=== PATIENT | male | born 1990 | race Caucasian/White ===

== ENCOUNTER 2016-11-27 12:38 | Inpatient (IN) | payer SELFPAY ==
[2016-11-27] MEDS ORDERED: Sodium Chloride 0.9% 1,000 ML IV ONE ×2 (13:30→15:00)
[2016-11-27 14:06] LABS: EOS # 0.2 K/uL (0.0-0.7); EOS % 2.8 % (0.0-4.0); MEAN PLATELET VOLUME 9.7 fL (7.2-11.7)
[2016-11-27 14:09] LABS: BASO % 0.4 % (0.0-2.0); HEMOGLOBIN 17.3 g/dL (12.0-18.0); LYMPH # 1.9 K/uL (1.0-4.3); LYMPH % 23.2 % (20.0-40.0); MEAN CORPUSCULAR HEMOGLOBIN 30.2 pg (27.0-31.0); MEAN CORPUSCULAR HGB CONC 34.3 g/dL (33.0-37.0); MONO # 4.6 K/uL (0.0-0.8); MONO % 55.7 % (0.0-10.0); NEUT # 1.5 K/uL (1.8-7.0); NEUT % 17.9 % (50.0-75.0); NRBC % 0.3 % (0.0-2.0); RBC 5.72 Mil/uL (4.40-5.90); RED CELL DISTRIBUTION WIDTH 13.4 % (11.5-14.5); WHITE BLOOD COUNT 8.2 K/uL (4.8-10.8)
[2016-11-27 14:10] LABS: VENOUS BLOOD GAS BASE EXCESS 3.8 mmol/L (0.0-2.0); VENOUS BLOOD GAS PCO2 56 mmHg (40-60); VENOUS BLOOD GAS PO2 19 mm/Hg (30-55); VENOUS BLOOD PH 7.35 (7.32-7.43)
[2016-11-27 14:13] LABS: INR 1.6
[2016-11-27 14:15] LABS: SQUAMOUS EPITHIAL < 1 /hpf (0-5); URINE BILIRUBIN 2+ (NEGATIVE); URINE BLOOD NEGATIVE (NEGATIVE); URINE CLARITY Clear (Clear); URINE COLOR Amber (YELLOW); URINE GLUCOSE (UA) NORMAL (Normal); URINE LEUKOCYTE ESTERASE TRACE Leu/uL (Negative); URINE NITRATE NEGATIVE (NEGATIVE); URINE PROTEIN 2+ mg/dL (NEGATIVE)
[2016-11-27 14:16] LABS: ALBUMIN 3.8 g/dL (3.5-5.0)
[2016-11-27 14:18] LABS: GFR AFRICAN-AMERICAN > 60; GFR NON-AFRICAN AMERICAN > 60
[2016-11-27 14:19] LABS: BILIRUBIN,DIRECT 5.6 mg/dL (0.0-0.4); BLOOD UREA NITROGEN 7 mg/dL (9-20); CALCIUM 8.5 mg/dl (8.6-10.4)
[2016-11-27 14:20] LABS: GAMMA GLUTAMYL TRANSPEPTIDASE 196 U/L (8-78); LIPASE 32 U/L (23-300)
--- NOTE | 2016-11-27 14:25 | RAD ---
HISTORY: Fever COMPARISON: None available. TECHNIQUE: Chest PA and lateral FINDINGS: LUNGS: No focal consolidation. Please note that chest x-ray has limited sensitivity for the detection of pulmonary masses. PLEURA: No significant pleural effusion identified. No definite pneumothorax . CARDIOVASCULAR: The cardiomediastinal silhouette appears within normal limits of size. OSSEOUS STRUCTURES: No acute osseous abnormality identified. VISUALIZED UPPER ABDOMEN: Unremarkable. OTHER FINDINGS: None. IMPRESSION: No focal consolidation, significant pleural effusion, or definite pneumothorax identified.
[2016-11-27 14:35] LABS: PLATELET COUNT 114 K/uL (130-400)
--- NOTE | 2016-11-27 14:35 | C.PDOC ---
Time Seen by Provider: 11/27/16 13:11 Chief Complaint (Nursing): Fever History Per: Patient Onset/Duration Of Symptoms: Days (5) Current Symptoms Are (Timing): Still Present Associated Symptoms: Fever (subjective), Nausea, Vomiting Severity: Moderate Recent travel outside of the [place]: Yes (Just returned from [place]) Additional History Per: Prior Records Past Medical History Reviewed: Historical Data, Nursing Documentation, Vital Signs Vital Signs: Last Vital Signs Temp 98.2 F 11/27/16 12:55 Pulse 66 11/27/16 14:19 Resp 14 11/27/16 14:19 BP 116/76 11/27/16 14:20 Pulse Ox 99 11/27/16 14:35 - Medical History PMH: Kidney Stones Surgical History: No Surg Hx Family History: States: Unknown Family Hx - Social History Hx Tobacco Use: Yes Hx Alcohol Use: Yes Hx Substance Use: No - Immunization History Hx Tetanus Toxoid Vaccination: No Hx Influenza Vaccination: No Hx Pneumococcal Vaccination: No Review Of Systems Except As Marked, All Systems Reviewed And Found Negative. Constitutional: Positive for: Fever, Malaise Cardiovascular: Negative for: Chest Pain Respiratory: Positive for: Cough (mild). Negative for: Shortness of Breath, Hemoptysis Gastrointestinal: Positive for: Nausea, Vomiting, Other (Pale stools). Negative for: Abdominal Pain Genitourinary: Negative for: Dysuria Musculoskeletal: Negative for: Neck Pain Skin: Positive for: Jaundice. Negative for: Rash Neurological: Negative for: Weakness, Numbness, Seizures, Altered Mental Status , Headache Physical Exam - Physical Exam Appears: No Acute Distress Skin: Warm, Dry, Jaundice Head: Atraumatic, Normacephalic Eye(s): bilateral: PERRL, EOMI, Scleral Icterus Neck: Normal ROM, Supple Cardiovascular: Rhythm Regular Respiratory: Normal Breath Sounds, No Accessory Muscle Use Gastrointestinal/Abdominal: Soft, No Tenderness, No Distention Back: No CVA Tenderness Extremity: Normal ROM, No Pedal Edema, No Calf Tenderness Neurological/Psych: Oriented x3, Normal Speech, Normal Cognition, Normal Motor, Normal Sensation ED Course And Treatment - Laboratory Results Result Diagrams: 11/27/16 13:58 11/27/16 13:58 Lab Interpretation: Abnormal Interpretation Of Abnormal: Liver failure. Hepatitis A reactive. O2 Sat by Pulse Oximetry: 99 Pulse Ox Interpretation: Normal - Radiology CXR: Viewed By Me, Read By Radiologist CXR Interpretation: Yes: No Acute Disease Progress - Interventions Interventions:: Observation, Intravenous fluid - Data Reviewed Data Reviewed: Lab, Diagnostic imaging, Old records - Patient Status Patient status: Partially improved - Continuity of Care Discussed patient case with:: Patient, Family-HIPPA compliant, ED Nurse, On- call PMD-pt unassigned - Patient Plan Patient Plan: Admission Disposition Discussed With DrNatasha: Enmanuel Pappas Comment: He accepted pt on hospitalist service. 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
[2016-11-27 14:48] LABS: PROTHROMBIN TIME 18.7 SECONDS (9.7-12.2)
[2016-11-27 14:53] LABS: HEPATITIS B SURFACE AG NEGATIVE (NEGATIVE)
[2016-11-27 14:59] LABS: HEPATITIS B CORE AB NEGATIVE (NEGATIVE)
[2016-11-27] MEDS ORDERED: Sodium Chloride 0.9% 1,000 ML ONE ×2 (15:02→17:01)
[2016-11-27 15:11] LABS: HEPATITIS C ANTIBODY NEGATIVE (NEGATIVE)
[2016-11-27 15:18] LABS: ALT/SGPT 6062 U/L (21-72); AST/SGOT 3288 U/L (17-59)
[2016-11-27 15:35] LABS: BANDS 3 % (0-2); EOSINOPHIL 3 % (0-4); LARGE PLATELETS PRESENT; LYMPHOCYTE 18 % (20-40); MONOCYTE 15 % (0-10); NEUTROPHIL 16 % (50-75); PLATELET ESTIMATE SLIGHTLY DECREASED (NORMAL); REACTIVE LYMPHOCYTES 45 % (0-0); TOTAL CELLS COUNTED 100
[2016-11-27 15:57] LABS: HEPATITIS A IGM REACTIVE (NEGATIVE)
--- NOTE | 2016-11-27 16:33 | CP.PCM.HP ---
<Domitila Francisco - Last Filed: 11/27/16 18:35> History of Present Illness - History of Present Illness History of Present Illness: CC: fever, n/v/d, jaundice HPI: 26M with PMHx of Malaria x 2 (P. Vivax) presented to the ED with fever, n/v /d, and jaundice. Patient reports he travelled to [facility] 09/2016-11/10/2016 with no malarial prophylaxis. He started to experience fevers with Tmax of 102F, with nausea, vomiting, and diarrhea. Patient went to an urgent care center on Thursday and was prescribed a Zpack and tylenol. Patient took both medications x2 days and stopped due to no improvement. He started to have jose manuel formed stools and noticed he had yellowing of his eyes. This is what prompted the patient to come to the ED. Admitted to fever, n/v/d/, jaundice, and generalized weakness and fatigue. Denied any bleeding, any altered mental status, chills, headache, chest pain, abdominal pain, or urinary symptoms. PMHx: Malaria x 2 (P. Vivax) PSHx: Denied Meds: Denied All: Denied SHx: Drinks beer and mixed hard liquior every 2 days for the past 2-3 years, smokes <10 cigarettes per day x 5years, and smokes marijuana and has tried meth FHx: Denied PMD: Denied Present on Admission - Present on Admission Any Indicators Present on Admission: No Review of Systems - Constitutional Constitutional: Fatigue, Fever, Weakness. absent: Chills, Excessive Sweating, Headache - EENT Eyes: absent: Change in Vision Ears: absent: Decreased Hearing, Tinnitus Nose/Mouth/Throat: absent: Dysphagia, Odynophagia - Cardiovascular Cardiovascular: absent: Chest Pain, Chest Pain at Rest - Respiratory Respiratory: absent: Cough, Dyspnea - Gastrointestinal Gastrointestinal: Change in Stool Character (jose manuel colored stools ), Diarrhea, Nausea, Vomiting. absent: Abdominal Pain, Bloating, Coffee Ground Emesis, Dysphagia, Hematemesis, Hematochezia - Genitourinary Genitourinary: absent: Dysuria, Hematuria - Musculoskeletal Musculoskeletal: Muscle Weakness, Myalgias. absent: Back Pain - Integumentary Integumentary: Jaundice - Neurological Neurological: absent: Abnormal Gait, Confusion, Disequilibrium, Dizziness, Numbness, Headaches - Hematologic/Lymphatic Hematologic: absent: Easy Bleeding, Easy Bruising Past Patient History - Infectious Disease Hx of Infectious Diseases: None - Past Social History Smoking Status: Light Smoker < 10 Cigarettes Daily - RENAL Hx Kidney Stones: Yes - PSYCHIATRIC Hx Substance Use: No - ANESTHESIA Hx Anesthesia: Yes Hx Anesthesia Reactions: No Meds Allergies/Adverse Reactions: Allergies Allergy/AdvReac Type Severity Reaction Status Date / Time No Known Allergies Allergy Verified 11/27/16 12:55 Physical Exam - Constitutional Appears: No Acute Distress - Head Exam Head Exam: NORMAL INSPECTION, NORMOCEPHALIC - Eye Exam Eye Exam: EOMI, PERRL, Scleral icterus Pupil Exam: NORMAL ACCOMODATION - ENT Exam ENT Exam: Mucous Membranes Dry Additional comments: sublingual Jaundice - Neck Exam Neck exam: Positive for: Normal Inspection - Respiratory Exam Respiratory Exam: Clear to Auscultation Bilateral, NORMAL BREATHING PATTERN. absent: Decreased Breath Sounds, Wheezes - Cardiovascular Exam Cardiovascular Exam: REGULAR RHYTHM, RRR, +S1, +S2 - GI/Abdominal Exam GI & Abdominal Exam: Normal Bowel Sounds, Soft. absent: Distended, Tenderness - Rectal Exam Rectal Exam: Deferred - Extremities Exam Extremities exam: Positive for: normal inspection, pedal pulses present. Negative for: pedal edema, tenderness - Back Exam Back exam: NORMAL INSPECTION - Neurological Exam Neurological exam: Alert, CN II-XII Intact, Oriented x3 - Psychiatric Exam Psychiatric exam: Normal Affect, Normal Mood - Skin Skin Exam: Dry, Intact, Normal Color, Warm Results - Vital Signs Recent Vital Signs: Last Vital Signs Temp 98.2 F 11/27/16 12:55 Pulse 66 11/27/16 14:19 Resp 14 11/27/16 14:19 BP 116/76 11/27/16 14:20 Pulse Ox 99 11/27/16 16:32 - Labs Result Diagrams: 11/27/16 13:58 11/27/16 13:58 Labs: Laboratory Results - last 24 hr 11/27/16 11/27/16 11/27/16 13:58 13:58 13:58 WBC 8.2 RBC 5.72 Hgb 17.3 Hct 50.3 MCV 88.0 MCH 30.2 MCHC 34.3 RDW 13.4 Plt Count 114 L MPV 9.7 Neut % (Auto) 17.9 L Lymph % (Auto) 23.2 [place] % (Auto) 55.7 H Eos % (Auto) 2.8 Baso % (Auto) 0.4 Neut # 1.5 L Lymph # 1.9 [place] # 4.6 H Eos # 0.2 Baso # 0.0 Neutrophils % (Manual) 16 L Band Neutrophils % 3 H Lymphocytes % (Manual) 18 L Reactive Lymphs % 45 H Monocytes % (Manual) 15 H Eosinophils % (Manual) 3 Platelet Estimate Slightly decreased L Large Platelets Present RBC Morphology Normal PT 18.7 H INR 1.6 APTT 38 H pO2 VBG pH VBG pCO2 VBG HCO3 VBG Total CO2 VBG O2 Sat (Calc) VBG Base Excess VBG Potassium Glucose Lactate Crit Value Called To Crit Value Called By Crit Value Read Back Blood Gas Notified Time Sodium Potassium Chloride Carbon Dioxide Anion Gap BUN Creatinine Est GFR ( Amer) Est GFR (Non-Af Amer) Random Glucose Calcium Total Bilirubin Direct Bilirubin GGT AST ALT Alkaline Phosphatase Total Protein Albumin Globulin Albumin/Globulin Ratio Lipase Venous Blood Potassium Urine Color [place] Urine Clarity Clear Urine pH 6.0 Ur Specific [place] 1.025 Urine Protein 2+ H Urine Glucose (UA) Normal Urine Ketones Trace Urine Blood Negative Urine Nitrate Negative Urine Bilirubin 2+ H Urine Urobilinogen 4.0 Ur Leukocyte Esterase Trace Urine WBC (Auto) 7 H Urine RBC (Auto) < 1 Ur Squamous Epith Cells < 1 Hepatitis A IgM Ab Hep Bs Antigen Hep B Core IgM Ab Hepatitis C Antibody 11/27/16 11/27/16 11/27/16 13:58 13:58 14:00 WBC RBC Hgb Hct MCV MCH MCHC RDW Plt Count MPV Neut % (Auto) Lymph % (Auto) [place] % (Auto) Eos % (Auto) Baso % (Auto) Neut # Lymph # [place] # Eos # Baso # Neutrophils % (Manual) Band Neutrophils % Lymphocytes % (Manual) Reactive Lymphs % Monocytes % (Manual) Eosinophils % (Manual) Platelet Estimate Large Platelets RBC Morphology PT INR APTT pO2 19 L VBG pH 7.35 VBG pCO2 56 VBG HCO3 26.0 VBG Total CO2 32.6 H VBG O2 Sat (Calc) 40.4 VBG Base Excess 3.8 H VBG Potassium 3.6 Glucose 90 Lactate 2.2 H Crit Value Called To Dr lizarraga Crit Value Called By Cheko frankel Crit Value Read Back Y Blood Gas Notified Time 1405 Sodium 133 132.0 Potassium 3.4 L Chloride 90 L 95.0 L Carbon Dioxide 30 Anion Gap 17 BUN 7 L Creatinine 0.8 Est GFR ( Amer) > 60 Est GFR (Non-Af Amer) > 60 Random Glucose 86 Calcium 8.5 L Total Bilirubin 6.7 H Direct Bilirubin 5.6 H GGT 196 H AST 3288 H ALT 6062 H Alkaline Phosphatase 115 Total Protein 7.5 Albumin 3.8 Globulin 3.7 Albumin/Globulin Ratio 1.0 Lipase 32 Venous Blood Potassium 3.6 Urine Color Urine Clarity Urine pH Ur Specific [place] Urine Protein Urine Glucose (UA) Urine Ketones Urine Blood Urine Nitrate Urine Bilirubin Urine Urobilinogen Ur Leukocyte Esterase Urine WBC (Auto) Urine RBC (Auto) Ur Squamous Epith Cells Hepatitis A IgM Ab Reactive H Hep Bs Antigen Negative Hep B Core IgM Ab Negative Hepatitis C Antibody Negative Assessment & Plan - Assessment and Plan (Free Text) Plan: Hepatitis A * INR 1.6, No AMS * MELD 19, Mortality 6%, Maddrey's Score: 46.7 * GI Consulted- Dr. Retana - help appreciated- Patient is to be evaluated by GI, possible transfer to [facility]. [phone] * ID Consulted- Dr. Mendiola - help appreciated * INR 1.6, T. Bili- 6.7, D. bili 5.6, GGT 196, AST/ALT: 3288/ 6062, Hepatitis A IgM Ab Reactive * Negative acetaminophen, alcohol, ammonia, hepatitis panel, HIV * Abdominal US -Echogenic liver, splenomegaly, contracted gallbladder Diarrhea * F/U stool studies, stool occult, c.diff, ova and parasite, e. histolytica, malaria, giardia Hx of Malaria * P. Vivax x 2 * F/U stool studies, ova and parasites studies Hx of Alcohol Use * Serum alcohol <10 * Alcohol Cessation Counselled Hx of Tobacco Use * Smoking Cessation Counselled Prophylactic Measure * GI PPX: Protonix 40mg IVP daily * DVT PPX: C/I due to thrombocytopenia * Regular Diet Disposition: Patient is being evaluated by GI, possible transfer to [facility]. DW Maryam Contreras DO, PGY-1 <Karely Dwyer V - Last Filed: 11/27/16 22:57> Results - Vital Signs Recent Vital Signs: Last Vital Signs Temp 98.5 F 11/27/16 21:46 Pulse 68 11/27/16 21:46 Resp 18 11/27/16 21:46 BP 120/69 11/27/16 21:46 Pulse Ox 100 11/27/16 21:46 - Labs Result Diagrams: 11/27/16 13:58 11/27/16 13:58 Labs: Laboratory Results - last 24 hr 11/27/16 11/27/16 11/27/16 18:02 18:02 18:02 Phosphorus 2.4 L Magnesium 1.6 Ammonia < 9 L Urine Opiates Screen Urine Methadone Screen Acetaminophen < 10.0 L Ur Barbiturates Screen Ur Phencyclidine Scrn Ur Amphetamines Screen U Benzodiazepines Scrn U Oth Cocaine Metabols U Cannabinoids Screen Alcohol, Quantitative < 10 HIV 1&2 Antibody Screen Blood Parasites Smear 11/27/16 11/27/16 11/27/16 18:02 18:03 18:04 Phosphorus Magnesium Ammonia Urine Opiates Screen Negative Urine Methadone Screen Negative Acetaminophen Ur Barbiturates Screen Negative Ur Phencyclidine Scrn Negative Ur Amphetamines Screen Negative U Benzodiazepines Scrn Negative U Oth Cocaine Metabols Negative U Cannabinoids Screen Positive Alcohol, Quantitative HIV 1&2 Antibody Screen Negative Blood Parasites Smear Negative Attending/Attestation - Attestation I have personally seen and examined this patient.: Yes I have fully participated in the care of the patient.: Yes I have reviewed all pertinent clinical information: Yes Notes (Text): Patient seen, evaluated, and case discussed with day-time resident in the ED on 11/27/16 in [facility] 10 approximately 5:00PM Patient seen at bedside with two friends. Patient permits us to speak about his medical information in front of his friends. patient reports Thursday he had a temperature of 102F, he reports he took 3 tabs of Paracemtol 650mg PO during Thu -Thursday. Patient reports he went to an urgent care on thursday, and he was given Z -pack and took 2 tabs. Patient reports he noted he was have jose manuel colored stools and dark colored stools Thursday into today. patient reports he notice yellowing of his eyes today. Per his friends who live with him, noted patient's eyes yellowing today. Patient reports he was in [place] in the past September to [facility], he did not take malaria prophylaxis, and drinks water that is filtered (not bottled ). Patient denies prior history of liver problems/liver infections. Patient also reports 1-2 (12 ounce) beers for the past 1.5 years day. He reports if he does do hard liquor he does mix the drinks. Patient denies prior illicit drugs except for meth while he was in [place]. Patient reports he has a prior hx of malaria (P. vivax) about 9 years ago, wherein he relapsed at the first occurrence and was treated afterwards. Patient is unaware of current vaccination status, but reports he came to the country while on student visa. Patient reports he sexually active, he sometimes uses protection, denies being tested for STDs/HIV. Patient reports only relative in the [place] is his Uncle in [place]. Medical hx: kidney stones Patient is awake, alert, oriented X3, no acute distress, he is not confused, speaks Urdu conversantly. Head: NCAT; scleral icterus; eomi, no nystagmus Ears: TMI b/l Throat: clear Mouth: no bleeding, mucus moist intact; sublingual jaundice Lungs: CTA b/l no W/R/R Abdomen: soft, nontender, +BS , no rebound, no guarding, negative Pineda's sign , i did not appreciate hepatomegaly Extremities: no cyanosis, no clubbing, no edema b/l LE Neuro: CN 2-12 grossly intact (CN 8 not test secondary lack of tuning forks), + gag reflex, +corneal reflex, negative straight leg test b/l, negative Babinski' s Strength: 5/5 UE and 5/5 LE; no asterixis Skin: does not appear jaundice; palms no juandice observed Patient does not smell like alcohol. Spoke with ED nurse-->order blood alcohol, tylenol, HIV, Abdominal US, and urine drug screen Resident directly spoke with GI Fellow, Ravi Villareal (Dr. Retana's group->button maker) regarding the case, who spoke with Dr. Johnston (GI), recommended for transfer to [facility] and not for admission-->each spoke separately with ED. I spoke with Dr. Monroe, ED, regarding GI recommendation, affirmed conversations, and I gave contact number for hepatology, which I provided him while in communication with the GI Fellow, Ravi Villareal, who is driving in to see the patient at the time of shift change: 650PM. Assessment/Plan 1) Hepatic Failure * MELD 19, Mortality 6%, Maddrey's Score: 46.7 * GI Consulted- Dr. Retana - help appreciated- Patient is to be evaluated by GI, recommended possible transfer to [facility]. [phone]-->Number provided by the Hepatology Fellow at [facility] provided by GI fellow; further recommendations by GI * ID Consulted- Dr. Mendiola - sarah appreciated * INR 1.6, T. Bili- 6.7, D. bili 5.6, GGT 196, AST/ALT: 3288/ 6062, Hepatitis A IgM Ab Reactive * Negative acetaminophen, alcohol, ammonia, hepatitis panel, HIV * Ordered for Abdominal US -Echogenic liver, splenomegaly, contracted gallbladder * Patient is not confused, no encephalopathic, and no bleeding problems * Patient advised he cannot have medications that are metabolized thru the liver which include anti-emetics: Zofran/Reglan; sedatives: benadryl/benzos 2) Diarrhea * R/o other causes of diarrhea while in consideration for hepatic failure * F/U stool studies, stool occult, c.diff, ova and parasite, e. histolytica, malaria, giardia 3) Hx of Malaria * Prior hx of P. Vivax-->reported 2 episodes about 9 years ago; patient has not have malaria prophylaxis prior to his trip to [facility] * F/U stool studies, ova and parasites studies 4) Hx of Alcohol Use * Serum alcohol <10 * Alcohol Cessation Counselled 5) Hx of Tobacco Use * Smoking Cessation Counselled 6) Prophylactic Measure * GI PPX: Protonix 40mg IVP daily * DVT PPX: C/I due to thrombocytopenia * Regular Diet Disposition: Patient is being evaluated by GI, possible transfer to [facility]. . Case endorsed to night-team.
[2016-11-27] MEDS ORDERED: Potassium Chloride 20 mEq ER Tab PO STA (16:37)
[2016-11-27] MEDS ORDERED: Sodium Chloride 0.9% 1,000 ML IV SCH (16:45)
[2016-11-27] MEDS ORDERED: Potassium Chloride 20 mEq ER Tab PO ONE (17:01)
[2016-11-27 18:22] LABS: MAGNESIUM 1.6 mg/dL (1.6-2.3)
[2016-11-27 18:27] LABS: BARBITURATES, UR NEGATIVE (NEGATIVE)
[2016-11-27 18:28] LABS: BENZODIAZEPINES, UR NEGATIVE (NEGATIVE)
--- NOTE | 2016-11-27 18:30 | CP.PCM.PN ---
Subjective - Date & Time of Evaluation Date of Evaluation: 11/27/16 Time of Evaluation: 05:00 - Subjective Subjective: CC: fever, n/v/d, jaundice HPI: 26M with PMHx of Malaria x 2 (P. Vivax) presented to the ED with fever, n/v /d, and jaundice. Patient reports he travelled to [facility] 09/2016-11/10/2016 with no malarial prophylaxis. He started to experience fevers with Tmax of 102F, with nausea, vomiting, and diarrhea. Patient went to an urgent care center on Thursday and was prescribed a Zpack and tylenol. Patient took both medications x2 days and stopped due to no improvement. He started to have jose manuel formed stools and noticed he had yellowing of his eyes. This is what prompted the patient to come to the ED. Admitted to fever, n/v/d/, jaundice, and generalized weakness and fatigue. Denied any bleeding, any altered mental status, chills, headache, chest pain, abdominal pain, or urinary symptoms. PMHx: Malaria x 2 (P. Vivax) PSHx: Denied Meds: Denied All: Denied SHx: Denied FHx: Denied PMD: Denied Gastroenterology Fellow was called discussed case with GI Attending, arrangments are being made to have patient transferred to [facility]. Objective - Vital Signs/Intake and Output Vital Signs (last 24 hours): Temp Pulse Resp BP Pulse Ox 98.2 F 80 16 130/69 100 11/27/16 12:55 11/27/16 16:55 11/27/16 16:55 11/27/16 16:55 11/27/16 16:55 - Medications Medications: Current Medications Sodium Chloride (Sodium Chloride 0.9%) 1,000 mls @ 100 mls/hr IV .Q10H SONDRA Last Admin: 11/27/16 17:06 Dose: 100 mls/hr Pantoprazole Sodium (Protonix Inj) 40 mg IVP DAILY SONDRA - Labs Labs: PT 18.7 SECONDS (9.7-12.2) H 11/27/16 13:58 INR 1.6 11/27/16 13:58 APTT 38 SECONDS (21-34) H 11/27/16 13:58 - Constitutional Appears: Toxic, No Acute Distress - Head Exam Head Exam: NORMAL INSPECTION, NORMOCEPHALIC - Eye Exam Eye Exam: EOMI, PERRL, Scleral icterus Pupil Exam: NORMAL ACCOMODATION - ENT Exam ENT Exam: Mucous Membranes Dry Additional comments: sublingual Jaundice - Respiratory Exam Respiratory Exam: Clear to Ausculation Bilateral, NORMAL BREATHING PATTERN. absent: Decreased Breath Sounds, Rhonchi, Wheezes - Cardiovascular Exam Cardiovascular Exam: REGULAR RHYTHM, RRR, +S1, +S2 - GI/Abdominal Exam GI & Abdominal Exam: Soft, Normal Bowel Sounds. absent: Distended, Guarding, Tenderness, Organomegaly - Rectal Exam Rectal Exam: Deferred - Extremities Exam Extremities Exam: Normal Inspection. absent: Pedal Edema, Tenderness - Back Exam Back Exam: NORMAL INSPECTION. absent: CVA tenderness (L), CVA tenderness (R) - Neurological Exam Neurological Exam: Alert, Awake, CN II-XII Intact, Oriented x3 - Psychiatric Exam Psychiatric exam: Normal Affect, Normal Mood - Skin Skin Exam: Dry, Intact, Normal Color, Warm
[2016-11-27 18:31] LABS: PHENCYCLIDINE, UR NEGATIVE (NEGATIVE)
[2016-11-27 18:32] LABS: OPIATES, UR NEGATIVE (NEGATIVE)
--- NOTE | 2016-11-27 18:45 | US ---
HISTORY: r/o biliary stones; elevated bilirubin COMPARISON: None available. TECHNIQUE: Sonographic evaluation of the abdomen. FINDINGS: LIVER: Measures 17.1 cm in sagittal dimension. Echogenic liver may be seen in setting of hepatic parenchymal disease or fatty infiltration. No focal hepatic mass identified. The main portal vein appears patent with normal directional flow. No intrahepatic bile duct dilatation. GALLBLADDER: Contracted gallbladder markedly limits evaluation. No gallstones. No gallbladder wall thickening. Negative sonographic Pineda's sign as assessed by the weather reporter. COMMON BILE DUCT: Measures 4 mm. PANCREAS: Not well visualized. RIGHT KIDNEY: Measures 12.2 x 4.2 x 4.9cm. No obstructing calculus or hydronephrosis identified. LEFT KIDNEY: Measures 11.8 x 4.8 x 4.4 cm. No obstructing calculus or hydronephrosis identified. SPLEEN: Measures approximately 15.3 cm. AORTA: Limited views appear unremarkable. IVC: Limited views appear unremarkable. OTHER FINDINGS: None. IMPRESSION: Echogenic liver may be seen in setting of hepatic parenchymal disease or fatty infiltration. Splenomegaly. Contracted gallbladder state limits evaluation. Otherwise unremarkable appearance.
--- NOTE | 2016-11-27 19:16 | CP.PCM.CON ---
History of Present Illness - History of Present Illness History of Present Illness: PGY5 GI Fellow Consult Note Patient is a 26yo male with PMHx significant for malaria treated successfully in [place] previously who presents to the ER with complaint of diffuse myalgias, fever and new onset jaundice. He states that he returned from a one month trip to [facility] in mid-October. 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 He took tylenol for several days without much improvement in symptoms and decided to follow up with a primary care physician who diagnosed him with URI and gave him an Rx for azithromycin pack and tylenol. Following two days of this therapy, he developed jose manuel colored stool, dark urine and noted jaundice. With concern that he was having an adverse reaction to the medication and still feeling unwell, he came to the ED for evaluation. The patient currently admits to persistent diffuse myalgias, nausea with vomiting and intermittent fevers. He notes one episode of hematemesis following multiple bouts of vomiting and denies any hematochezia, melena or hemoptysis. There is no new bruising noted. He and his friend (at bedside) deny any mental status changes. He has no sick contacts that he is aware of. The patient drinks 1-2 pints of beer daily for many years and will occasionally indulge in hard liquor on weekends. Last drink was one week [employer] BAR [employer]. PMHx: See HPI PSHx: Discussed with patient and denies any significant surgical history FHx: Discussed with patient and denies any significant family history Social: Daily EtOH (1-2 pints daily, occasionally hard liquor as well), 2-3 cig/ day (prior 1pk/day smoker), marijuana use and smoked meth once in [place] Endo: 12 system ROS discussed and negative except where stated above Past Patient History - Infectious Disease Hx of Infectious Diseases: None - Past Social History Smoking Status: Light Smoker < 10 Cigarettes Daily - RENAL Hx Kidney Stones: Yes - PSYCHIATRIC Hx Substance Use: No - ANESTHESIA Hx Anesthesia: Yes Hx Anesthesia Reactions: No Meds Allergies/Adverse Reactions: Allergies Allergy/AdvReac Type Severity Reaction Status Date / Time No Known Allergies Allergy Verified 11/27/16 12:55 - Medications Medications: Current Medications Sodium Chloride (Sodium Chloride 0.9%) 1,000 mls @ 100 mls/hr IV .Q10H SONDRA Last Admin: 11/27/16 17:06 Dose: 100 mls/hr Pantoprazole Sodium (Protonix Inj) 40 mg IVP DAILY [facility] Physical Exam - Constitutional Appears: No Acute Distress - Eye Exam Eye Exam: EOMI, PERRL, Scleral icterus - ENT Exam ENT Exam: Mucous Membranes Dry - Respiratory Exam Respiratory Exam: Clear to Auscultation Bilateral. absent: Rales, Rhonchi, Wheezes - Cardiovascular Exam Cardiovascular Exam: RRR, +S1, +S2 - GI/Abdominal Exam GI & Abdominal Exam: Normal Bowel Sounds, Soft. absent: Distended, Firm, Guarding, Organomegaly, Rigid, Tenderness - Extremities Exam Extremities exam: Positive for: normal inspection. Negative for: pedal edema - Neurological Exam Neurological exam: Alert, Oriented x3 - Psychiatric Exam Psychiatric exam: Normal Affect, Normal Mood - Skin Skin Exam: Dry, Warm Additional comments: jaundice Results - Vital Signs Recent Vital Signs: Last Vital Signs Temp 98.2 F 11/27/16 12:55 Pulse 80 11/27/16 16:55 Resp 16 11/27/16 16:55 BP 130/69 11/27/16 16:55 Pulse Ox 100 11/27/16 16:55 - Labs Result Diagrams: 11/27/16 13:58 11/27/16 13:58 Labs: Laboratory Results - last 24 hr 11/27/16 11/27/16 11/27/16 18:02 18:02 18:02 Phosphorus 2.4 L Magnesium 1.6 Ammonia < 9 L Urine Opiates Screen Urine Methadone Screen Acetaminophen < 10.0 L Ur Barbiturates Screen Ur Phencyclidine Scrn Ur Amphetamines Screen U Benzodiazepines Scrn U Oth Cocaine Metabols U Cannabinoids Screen Alcohol, Quantitative < 10 HIV 1&2 Antibody Screen 11/27/16 11/27/16 18:02 18:04 Phosphorus Magnesium Ammonia Urine Opiates Screen Negative Urine Methadone Screen Negative Acetaminophen Ur Barbiturates Screen Negative Ur Phencyclidine Scrn Negative Ur Amphetamines Screen Negative U Benzodiazepines Scrn Negative U Oth Cocaine Metabols Negative U Cannabinoids Screen Positive Alcohol, Quantitative HIV 1&2 Antibody Screen Negative Assessment & Plan - Assessment and Plan (Free Text) Assessment: Patient is a 26yo male with PMHx significant for malaria treated successfully in [place] previously who presents to the ER with complaint of diffuse myalgias, fever and new onset jaundice. He states that he returned from a one month trip to [facility] in mid-October. -Acute Hepatitis A infection; R/O underlying CLD or acute alcoholic hepatitis -Abnormal LFTs in the setting of above -Mild thrombocytopenia -Coagulopathy 2/2 above -Alcohol abuse -Marijuana use -Tobacco use -Distant h/o malaria Plan: -Acute Hepatitis A noted on serologies -No evidence of acute bleeding or mental status changes at this time, closely monitor clinical condition -Suspect hemoconcentration given CBC findings; IVF as ordered -Check U/S abdomen -Acetaminophen level unremarkable; EtOH level unremarkable -UDS noted positive for marijuana -The patient would benefit from evaluation at a liver transplant center and our team would recommend transfer for evaluation as soon as possible once accepted -I have discussed this patient's case with the hepatology fellow financial professional (Dr Hernández) at [facility] who has accepted the patient for transfer -Continue supportive care -Monitor CBC, CMP, INR *MELD-Na: 23 - Date & Time Date: 11/27/16 Time: 07:15
[2016-11-27 19:22] LABS: INTRACELLULAR PARASITE NEGATIVE (NEGATIVE)
[2016-11-28 01:00] VITALS: BP 113/66; PULSE 66; RESP 20; TEMP 98; O2SAT 97
--- NOTE | 2016-11-28 07:03 | CP.PCM.DIS ---
<Bre Shaw - Last Filed: 11/28/16 06:48> Provider - Provider Date of Admission: 11/27/16 16:32 Attending physician: Enmanuel Pappas MD Consults: GI (Dr. Retana) Time Spent in preparation of Discharge (in minutes): 45 Diagnosis - Discharge Diagnosis (1) Hepatitis A infection Status: Acute (2) Diarrhea Status: Acute (3) History of malaria Status: Acute (4) History of alcohol use Status: Chronic (5) History of tobacco use Status: Chronic Hospital Course - Lab Results Lab Results: Most Recent Lab Values WBC 8.2 K/uL (4.8-10.8) 11/27/16 13:58 RBC 5.72 Mil/uL (4.40-5.90) 11/27/16 13:58 Hgb 17.3 g/dL (12.0-18.0) 11/27/16 13:58 Hct 50.3 % (35.0-51.0) 11/27/16 13:58 MCV 88.0 fL (80.0-94.0) 11/27/16 13:58 MCH 30.2 pg (27.0-31.0) 11/27/16 13:58 MCHC 34.3 g/dL (33.0-37.0) 11/27/16 13:58 RDW 13.4 % (11.5-14.5) 11/27/16 13:58 Plt Count 114 K/uL (130-400) L 11/27/16 13:58 MPV 9.7 fL (7.2-11.7) 11/27/16 13:58 Neut % (Auto) 17.9 % (50.0-75.0) L 11/27/16 13:58 Lymph % (Auto) 23.2 % (20.0-40.0) 11/27/16 13:58 [place] % (Auto) 55.7 % (0.0-10.0) H 11/27/16 13:58 Eos % (Auto) 2.8 % (0.0-4.0) 11/27/16 13:58 Baso % (Auto) 0.4 % (0.0-2.0) 11/27/16 13:58 Neut # 1.5 K/uL (1.8-7.0) L 11/27/16 13:58 Lymph # 1.9 K/uL (1.0-4.3) 11/27/16 13:58 [place] # 4.6 K/uL (0.0-0.8) H 11/27/16 13:58 Eos # 0.2 K/uL (0.0-0.7) 11/27/16 13:58 Baso # 0.0 K/uL (0.0-0.2) 11/27/16 13:58 Neutrophils % (Manual) 16 % (50-75) L 11/27/16 13:58 Band Neutrophils % 3 % (0-2) H 11/27/16 13:58 Lymphocytes % (Manual) 18 % (20-40) L 11/27/16 13:58 Reactive Lymphs % 45 % (0-0) H 11/27/16 13:58 Monocytes % (Manual) 15 % (0-10) H 11/27/16 13:58 Eosinophils % (Manual) 3 % (0-4) 11/27/16 13:58 Platelet Estimate Slightly decreased (NORMAL) L 11/27/16 13:58 Large Platelets Present 11/27/16 13:58 RBC Morphology Normal 11/27/16 13:58 PT 18.7 SECONDS (9.7-12.2) H 11/27/16 13:58 INR 1.6 11/27/16 13:58 APTT 38 SECONDS (21-34) H 11/27/16 13:58 pO2 19 mm/Hg (30-55) L 11/27/16 14:00 VBG pH 7.35 (7.32-7.43) 11/27/16 14:00 VBG pCO2 56 mmHg (40-60) 11/27/16 14:00 VBG HCO3 26.0 mmol/L 11/27/16 14:00 VBG Total CO2 32.6 mmol/L (22-28) H 11/27/16 14:00 VBG O2 Sat (Calc) 40.4 % (40-65) 11/27/16 14:00 VBG Base Excess 3.8 mmol/L (0.0-2.0) H 11/27/16 14:00 VBG Potassium 3.6 mmol/L (3.6-5.2) 11/27/16 14:00 Sodium 132.0 mmol/l (132-148) 11/27/16 14:00 Chloride 95.0 mmol/L (98-107) L 11/27/16 14:00 Glucose 90 mg/dl (75-110) 11/27/16 14:00 Lactate 2.2 mmol/L (0.7-2.1) H 11/27/16 14:00 Crit Value Called To Dr lizarraga 11/27/16 14:00 Crit Value Called By Cheko frankel 11/27/16 14:00 Crit Value Read Back Y 11/27/16 14:00 Blood Gas Notified Time 1405 11/27/16 14:00 Sodium 133 mmol/L (132-148) 11/27/16 13:58 Potassium 3.4 mmol/L (3.6-5.2) L 11/27/16 13:58 Chloride 90 mmol/L (98-107) L 11/27/16 13:58 Carbon Dioxide 30 mmol/L (22-30) 11/27/16 13:58 Anion Gap 17 (10-20) 11/27/16 13:58 BUN 7 mg/dL (9-20) L 11/27/16 13:58 Creatinine 0.8 MG/DL (0.8-1.5) 11/27/16 13:58 Est GFR ( Amer) > 60 11/27/16 13:58 Est GFR (Non-Af Amer) > 60 11/27/16 13:58 Random Glucose 86 mg/dL (75-110) 11/27/16 13:58 Calcium 8.5 mg/dl (8.6-10.4) L 11/27/16 13:58 Phosphorus 2.4 mg/dL (2.5-4.5) L 11/27/16 18:02 Magnesium 1.6 mg/dL (1.6-2.3) 11/27/16 18:02 Total Bilirubin 6.7 mg/dL (0.2-1.3) H 11/27/16 13:58 Direct Bilirubin 5.6 mg/dL (0.0-0.4) H 11/27/16 13:58 GGT 196 U/L (8-78) H 11/27/16 13:58 AST 3288 U/L (17-59) H 11/27/16 13:58 ALT 6062 U/L (21-72) H 11/27/16 13:58 Alkaline Phosphatase 115 U/L (38-126) 11/27/16 13:58 Ammonia < 9 umol/L (9-33) L 11/27/16 18:02 Total Protein 7.5 g/dL (6.3-8.3) 11/27/16 13:58 Albumin 3.8 g/dL (3.5-5.0) 11/27/16 13:58 Globulin 3.7 gm/dL (2.2-3.9) 11/27/16 13:58 Albumin/Globulin Ratio 1.0 (1.0-2.1) 11/27/16 13:58 Lipase 32 U/L (23-300) 11/27/16 13:58 Venous Blood Potassium 3.6 mmol/L (3.6-5.2) 11/27/16 14:00 Urine Color [place] (YELLOW) 11/27/16 13:58 Urine Clarity Clear (Clear) 11/27/16 13:58 Urine pH 6.0 (5.0-8.0) 11/27/16 13:58 Ur Specific [place] 1.025 (1.003-1.030) 11/27/16 13:58 Urine Protein 2+ mg/dL (NEGATIVE) H 11/27/16 13:58 Urine Glucose (UA) Normal mg/dL (Normal) 11/27/16 13:58 Urine Ketones Trace mg/dL (NEGATIVE) 11/27/16 13:58 Urine Blood Negative (NEGATIVE) 11/27/16 13:58 Urine Nitrate Negative (NEGATIVE) 11/27/16 13:58 Urine Bilirubin 2+ (NEGATIVE) H 11/27/16 13:58 Urine Urobilinogen 4.0 mg/dL (0.2-1.0) 11/27/16 13:58 Ur Leukocyte Esterase Trace [place]/uL (Negative) 11/27/16 13:58 Urine WBC (Auto) 7 /hpf (0-5) H 11/27/16 13:58 Urine RBC (Auto) < 1 /hpf (0-3) 11/27/16 13:58 Ur Squamous Epith Cells < 1 /hpf (0-5) 11/27/16 13:58 Urine Opiates Screen Negative (NEGATIVE) 11/27/16 18:04 Urine Methadone Screen Negative (NEGATIVE) 11/27/16 18:04 Acetaminophen < 10.0 ug/mL (10.0-30.0) L 11/27/16 18:02 Ur Barbiturates Screen Negative (NEGATIVE) 11/27/16 18:04 Ur Phencyclidine Scrn Negative (NEGATIVE) 11/27/16 18:04 Ur Amphetamines Screen Negative (NEGATIVE) 11/27/16 18:04 U Benzodiazepines Scrn Negative (NEGATIVE) 11/27/16 18:04 U Oth Cocaine Metabols Negative (NEGATIVE) 11/27/16 18:04 U Cannabinoids Screen Positive (NEGATIVE) 11/27/16 18:04 Alcohol, Quantitative < 10 mg/dl (0-10) 11/27/16 18:02 Hepatitis A IgM Ab Reactive (NEGATIVE) H 11/27/16 13:58 Hep Bs Antigen Negative (NEGATIVE) 11/27/16 13:58 Hep B Core IgM Ab Negative (NEGATIVE) 11/27/16 13:58 Hepatitis C Antibody Negative (NEGATIVE) 11/27/16 13:58 HIV 1&2 Antibody Screen Negative (NEGATIVE) 11/27/16 18:02 Blood Parasites Smear Negative (NEGATIVE) 11/27/16 18:03 - Hospital Course Hospital Course: On admission: 26M with PMHx of Malaria x 2 (P. Vivax) presented to the ED with fever, n/v/d, and jaundice. Patient reports he travelled to [facility] 09/2016-11/10/2016 with no malarial prophylaxis. He started to experience fevers with Tmax of 102F, with nausea, vomiting, and diarrhea. Patient went to an urgent care center on Thursday and was prescribed a Zpack and tylenol. Patient took both medications x2 days and stopped due to no improvement. He started to have jose manuel formed stools and noticed he had yellowing of his eyes. This is what prompted the patient to come to the ED. Admitted to fever, n/v/d/, jaundice, and generalized weakness and fatigue. Denied any bleeding, any altered mental status, chills, headache, chest pain, abdominal pain, or urinary symptoms. Hospital Course: Patient closely monitored and stable. No evidence of acute bleeding or mental status changes noted. Patient found to be Hepatitis A reactive. Infectious Disease ( Dr. Mendiola) was brought on board with recommendations for further workup. Refer to labwork. Abd U/S ordered with findings of an echogenic liver, splenomegaly and contracted gallbladder in brief. Stool studies were ordered for the diarrhea. Ova and parasite studies were also ordered to rule out malaria. UDS and alcohol and acetaminophen level were ordered. Acetaminophen level less than 10. Cannabinoids positive. Recommendations were made for further evaluation at a liver transplant center. [facility] in [place] was contacted. Patient was accepted under the service of Dr. Oneill overnight. Patient counseled extensively on cessation during his short course here. This is a brief summary of events. For a complete course, refer to the medical record. Discharge Exam - Head Exam Head Exam: NORMAL INSPECTION, NORMOCEPHALIC - Eye Exam Eye Exam: EOMI, PERRL, Scleral icterus - ENT Exam ENT Exam: Mucous Membranes Dry - Neck Exam Neck exam: Full Rom - Respiratory Exam Respiratory Exam: NORMAL BREATHING PATTERN - Cardiovascular Exam Cardiovascular Exam: +S1, +S2 - GI/Abdominal Exam GI & Abdominal Exam: Normal Bowel Sounds, Soft - Extremities Exam Extremities exam: full ROM - Back Exam Back exam: FULL ROM - Neurological Exam Neurological exam: Alert, Oriented x3 - Psychiatric Exam Psychiatric exam: Normal Affect, Normal Mood - Skin Skin Exam: Dry, Intact, Warm - Additional Findings Additional findings: jaundiced Discharge Plan - Follow Up Plan Condition: FAIR Disposition: Trans to Other Acute Care Hosp Additional Instructions: Patient is medically stable for transfer to [facility] in [place], [place]. Accepting physician will be Dr. Oneill. Patient to continue management care there. Instructions explained to patient who is aware. <Karely Dwyer V - Last Filed: 11/29/16 23:39> Provider - Provider Date of Admission: 11/27/16 16:32 Attending physician: Enmanuel Pappas MD Hospital Course - Lab Results Lab Results: Micro Results 11/27/16 21:45 Stool Ova and Parasite Concentrate Exam - Final 11/27/16 Unknown Urine Urine Culture - Final No Growth (<1,000 CFU/ML) Most Recent Lab Values WBC 8.2 K/uL (4.8-10.8) 11/27/16 13:58 RBC 5.72 Mil/uL (4.40-5.90) 11/27/16 13:58 Hgb 17.3 g/dL (12.0-18.0) 11/27/16 13:58 Hct 50.3 % (35.0-51.0) 11/27/16 13:58 MCV 88.0 fL (80.0-94.0) 11/27/16 13:58 MCH 30.2 pg (27.0-31.0) 11/27/16 13:58 MCHC 34.3 g/dL (33.0-37.0) 11/27/16 13:58 RDW 13.4 % (11.5-14.5) 11/27/16 13:58 Plt Count 114 K/uL (130-400) L 11/27/16 13:58 MPV 9.7 fL (7.2-11.7) 11/27/16 13:58 Neut % (Auto) 17.9 % (50.0-75.0) L 11/27/16 13:58 Lymph % (Auto) 23.2 % (20.0-40.0) 11/27/16 13:58 [place] % (Auto) 55.7 % (0.0-10.0) H 11/27/16 13:58 Eos % (Auto) 2.8 % (0.0-4.0) 11/27/16 13:58 Baso % (Auto) 0.4 % (0.0-2.0) 11/27/16 13:58 Neut # 1.5 K/uL (1.8-7.0) L 11/27/16 13:58 Lymph # 1.9 K/uL (1.0-4.3) 11/27/16 13:58 [place] # 4.6 K/uL (0.0-0.8) H 11/27/16 13:58 Eos # 0.2 K/uL (0.0-0.7) 11/27/16 13:58 Baso # 0.0 K/uL (0.0-0.2) 11/27/16 13:58 Neutrophils % (Manual) 16 % (50-75) L 11/27/16 13:58 Band Neutrophils % 3 % (0-2) H 11/27/16 13:58 Lymphocytes % (Manual) 18 % (20-40) L 11/27/16 13:58 Reactive Lymphs % 45 % (0-0) H 11/27/16 13:58 Monocytes % (Manual) 15 % (0-10) H 11/27/16 13:58 Eosinophils % (Manual) 3 % (0-4) 11/27/16 13:58 Platelet Estimate Slightly decreased (NORMAL) L 11/27/16 13:58 Large Platelets Present 11/27/16 13:58 RBC Morphology Normal 11/27/16 13:58 PT 18.7 SECONDS (9.7-12.2) H 11/27/16 13:58 INR 1.6 11/27/16 13:58 APTT 38 SECONDS (21-34) H 11/27/16 13:58 pO2 19 mm/Hg (30-55) L 11/27/16 14:00 VBG pH 7.35 (7.32-7.43) 11/27/16 14:00 VBG pCO2 56 mmHg (40-60) 11/27/16 14:00 VBG HCO3 26.0 mmol/L 11/27/16 14:00 VBG Total CO2 32.6 mmol/L (22-28) H 11/27/16 14:00 VBG O2 Sat (Calc) 40.4 % (40-65) 11/27/16 14:00 VBG Base Excess 3.8 mmol/L (0.0-2.0) H 11/27/16 14:00 VBG Potassium 3.6 mmol/L (3.6-5.2) 11/27/16 14:00 Sodium 132.0 mmol/l (132-148) 11/27/16 14:00 Chloride 95.0 mmol/L (98-107) L 11/27/16 14:00 Glucose 90 mg/dl (75-110) 11/27/16 14:00 Lactate 2.2 mmol/L (0.7-2.1) H 11/27/16 14:00 Crit Value Called To Dr lizarraga 11/27/16 14:00 Crit Value Called By Cheko frankel 11/27/16 14:00 Crit Value Read Back Y 11/27/16 14:00 Blood Gas Notified Time 1405 11/27/16 14:00 Sodium 133 mmol/L (132-148) 11/27/16 13:58 Potassium 3.4 mmol/L (3.6-5.2) L 11/27/16 13:58 Chloride 90 mmol/L (98-107) L 11/27/16 13:58 Carbon Dioxide 30 mmol/L (22-30) 11/27/16 13:58 Anion Gap 17 (10-20) 11/27/16 13:58 BUN 7 mg/dL (9-20) L 11/27/16 13:58 Creatinine 0.8 MG/DL (0.8-1.5) 11/27/16 13:58 Est GFR ( Amer) > 60 11/27/16 13:58 Est GFR (Non-Af Amer) > 60 11/27/16 13:58 Random Glucose 86 mg/dL (75-110) 11/27/16 13:58 Calcium 8.5 mg/dl (8.6-10.4) L 11/27/16 13:58 Phosphorus 2.4 mg/dL (2.5-4.5) L 11/27/16 18:02 Magnesium 1.6 mg/dL (1.6-2.3) 11/27/16 18:02 Total Bilirubin 6.7 mg/dL (0.2-1.3) H 11/27/16 13:58 Direct Bilirubin 5.6 mg/dL (0.0-0.4) H 11/27/16 13:58 GGT 196 U/L (8-78) H 11/27/16 13:58 AST 3288 U/L (17-59) H 11/27/16 13:58 ALT 6062 U/L (21-72) H 11/27/16 13:58 Alkaline Phosphatase 115 U/L (38-126) 11/27/16 13:58 Ammonia < 9 umol/L (9-33) L 11/27/16 18:02 Total Protein 7.5 g/dL (6.3-8.3) 11/27/16 13:58 Albumin 3.8 g/dL (3.5-5.0) 11/27/16 13:58 Globulin 3.7 gm/dL (2.2-3.9) 11/27/16 13:58 Albumin/Globulin Ratio 1.0 (1.0-2.1) 11/27/16 13:58 Lipase 32 U/L (23-300) 11/27/16 13:58 Venous Blood Potassium 3.6 mmol/L (3.6-5.2) 11/27/16 14:00 Urine Color [place] (YELLOW) 11/27/16 13:58 Urine Clarity Clear (Clear) 11/27/16 13:58 Urine pH 6.0 (5.0-8.0) 11/27/16 13:58 Ur Specific [place] 1.025 (1.003-1.030) 11/27/16 13:58 Urine Protein 2+ mg/dL (NEGATIVE) H 11/27/16 13:58 Urine Glucose (UA) Normal mg/dL (Normal) 11/27/16 13:58 Urine Ketones Trace mg/dL (NEGATIVE) 11/27/16 13:58 Urine Blood Negative (NEGATIVE) 11/27/16 13:58 Urine Nitrate Negative (NEGATIVE) 11/27/16 13:58 Urine Bilirubin 2+ (NEGATIVE) H 11/27/16 13:58 Urine Urobilinogen 4.0 mg/dL (0.2-1.0) 11/27/16 13:58 Ur Leukocyte Esterase Trace [place]/uL (Negative) 11/27/16 13:58 Urine WBC (Auto) 7 /hpf (0-5) H 11/27/16 13:58 Urine RBC (Auto) < 1 /hpf (0-3) 11/27/16 13:58 Ur Squamous Epith Cells < 1 /hpf (0-5) 11/27/16 13:58 Stool Leukocytes, Qual Negative (NEGATIVE) 11/27/16 21:45 Urine Opiates Screen Negative (NEGATIVE) 11/27/16 18:04 Urine Methadone Screen Negative (NEGATIVE) 11/27/16 18:04 Acetaminophen < 10.0 ug/mL (10.0-30.0) L 11/27/16 18:02 Ur Barbiturates Screen Negative (NEGATIVE) 11/27/16 18:04 Ur Phencyclidine Scrn Negative (NEGATIVE) 11/27/16 18:04 Ur Amphetamines Screen Negative (NEGATIVE) 11/27/16 18:04 U Benzodiazepines Scrn Negative (NEGATIVE) 11/27/16 18:04 U Oth Cocaine Metabols Negative (NEGATIVE) 11/27/16 18:04 U Cannabinoids Screen Positive (NEGATIVE) 11/27/16 18:04 Alcohol, Quantitative < 10 mg/dl (0-10) 11/27/16 18:02 C. difficile Ag & Toxin Negative (NEGATIVE) 11/27/16 21:45 Giardia Antigen Not detected (Not Detected) 11/27/16 12:00 Hepatitis A IgM Ab Reactive (NEGATIVE) H 11/27/16 13:58 Hepatitis A Ab Total Reactive (Nonreactive) H 11/27/16 18:02 Hep Bs Antigen Negative (NEGATIVE) 11/27/16 13:58 Hep B Core IgM Ab Negative (NEGATIVE) 11/27/16 13:58 Hepatitis C Antibody Negative (NEGATIVE) 11/27/16 13:58 HIV 1&2 Antibody Screen Negative (NEGATIVE) 11/27/16 18:02 Blood Parasites Smear Negative (NEGATIVE) 11/27/16 18:03 Attending/Attestation - Attestation I have personally seen and examined this patient.: Yes I have fully participated in the care of the patient.: Yes I have reviewed all pertinent clinical information, including history, physical exam and plan: Yes Notes (Text): This is late computer entry for 11/28/16. Patient transferred overnight to [facility] under Dr. Oneill (PAOLA) for further evaluation and if necessary to a facility that supports liver transplant. Arrangements by PAOLA on consult-->Help appreciated. Night resident filled EMTLA and medically stable for transfer.
--- NOTE | 2016-11-28 13:00 | CARD ---
APPROVED REPORT EKG Measurement Heart [id number] <Conclusion> Sinus rhythm with premature atrial complexes with aberrant conduction Cannot rule out Anterior infarct, age undetermined Abnormal ECG
== END 2016-11-28 01:20 | disposition short-term general hospital (02) | DRG 442 ==
LOC: C.ER 12:38 → C.9E 16:32 → C.5T 20:26
PROVIDERS: ADMIT Internal Medicine; ATTEND Internal Medicine
DX: K72.00 Acute and subacute hepatic failure without coma (principal); B15.9 Hepatitis A without hepatic coma; D68.9 Coagulation defect, unspecified; D69.6 Thrombocytopenia, unspecified; F17.210 Nicotine dependence, cigarettes, uncomplicated; F12.90 Cannabis use, unspecified, uncomplicated; F10.10 Alcohol abuse, uncomplicated; Z86.13 Personal history of malaria; Z87.442 Personal history of urinary calculi